=== PATIENT | male | born 1965 | race Hispanic/Latino ===

== ENCOUNTER 2019-03-08 15:30 | Emergency (ER) | payer OTHER, SELFPAY ==
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
== END 2019-03-08 17:36 | disposition home or self-care (01) ==
LOC: ERS 15:30
DX: M54.2 Cervicalgia (principal); M54.5 Low back pain; V89.2XXA Person injured in unspecified motor-vehicle accident, traffic, initial encounter
CPT/HCPCS: 71045; 72040; 72100; 72125